=== PATIENT | female | born 1960 | race Hispanic/Latino ===

== ENCOUNTER 2019-06-01 12:17 | Outpatient (CLI) | payer OTHER ==
--- NOTE | 2019-06-01 15:29 | Mammography Report ---
LEFT DIGITAL DIAGNOSTIC MAMMOGRAM WITH CAD 06/01/2019 LEFT LIMITED BREAST ULTRASOUND INDICATION: Recalled to evaluate an upper asymmetry at screening. F/U abnormal mammogram TECHNIQUE: Digital left mammographic imaging was performed. Spot compression views were obtained. Li mited ultrasound was performed. This examination was interpreted with the benefit of Computer-Aided D etection (CAD) analysis. COMPARISON: 04/28/2019 FINDINGS: Breast Density: The breasts are heterogeneously dense, which may obscure small masses. MAMMOGRAPHIC FINDINGS: A partially circumscribed asymmetry persists on a spot compression MLO view. A lateral view is negative. ULTRASOUND FINDINGS: Targeted ultrasound evaluation was performed of the area of interest. Ultrasou nd of the outer left breast was performed from 12:00 to 6:00 and demonstrated an oval cyst at 2:00 6 cm from the nipple. It has a partially calcified wall and correlates with the mammographic density. IMPRESSION: A benign cyst at 2:00 6 cm from the nipple. The sonographic characteristics suggest benig n fat necrosis with a benign oil cyst. Follow up recommendation: Routine yearly BI-RADS Category 2: Benign. A "normal" or negative report should not discourage follow up or biopsy of a clinically significant f inding. A written summary of these findings will be mailed to the patient. The patient will be entered into a mammography reporting system which will generate a reminder letter for the patient's next appointmen t at the appropriate interval. According to the [employer], yearly mammograms are recommended starting at age 40 and continuing as long as a woman is in good health. Breast MRI is recommended for women with an ira roximately 20-25% or greater lifetime risk of breast cancer, including women with a strong family his tory of breast or ovarian cancer and women who have been treated for Hodgkin's disease. Signer Name: Elijah Merrill MD Signed: 06/01/2019 3:24 PM Workstation Name: [id number]
== END 2019-06-01 12:18 | disposition home or self-care (01) ==
LOC: SPVWC 12:17
PROVIDERS: ATTEND Surgery
DX: N60.02 Solitary cyst of left breast (principal); N64.89 Other specified disorders of breast

== ENCOUNTER 2020-05-04 09:02 | Outpatient (CLI) | payer OTHER ==
--- NOTE | 2020-05-04 10:15 | Mammography Report ---
BILATERAL DIGITAL SCREENING MAMMOGRAM WITH CAD HISTORY: Screening mammogram. TECHNIQUE: Routine digital mammographic imaging performed. This examination was interpreted with dexter zee benefit of Computer-aided Detection analysis. COMPARISON: 06/01/2019, 04/28/2019, 04/02/2018, 03/25/2017, 03/20/2016, 01/11/2014. FINDINGS: Breast Density: scattered fibroglandular appearance of the breast tissue. Digital CC and MLO views demonstrate no mammographic evidence of malignancy. Stable silicone implant s are again noted bilaterally. Stable right lateral breast oval lesion. Long-term stability would sup port a benign etiology, such as intramammary lymph node. IMPRESSION: No mammographic evidence of malignancy. If the clinical examination remains stable, recommend bilate ral mammogram in approximately one year. BIRADS 2: Benign Finding(s). FURTHER INFORMATION: According to the [employer], yearly mammograms are recommend ed starting at age 40 and continuing as long as a woman is in good health. Clinical Breast Exams shou ld be part of a periodic health exam-about every 3 years for women in their 20s and 30s and every yea r for women 40 and over. Breast self exam is an option for women starting in their 20s. Any breast ch maxwell noted on a breast self exam should be reported promptly to the patient's healthcare provider. Br east MRI is recommended for women with an approximately 20-25% or greater lifetime risk of breast can cer, including women with a strong family history of breast or ovarian cancer and women who have been treated for Hodgkin's disease. A negative Mammography report should not discourage follow up or biopsy of a clinically significant f inding and/or abnormality. Dense breast tissue may obscure small neoplasms. The patient will be entered into a reminder system with a target due date for the next screening mamm ogram. Signer Name: Kenny Bhatt MD Signed: 05/04/2020 10:10 AM Workstation Name: [id number]
== END 2020-05-04 09:03 | disposition home or self-care (01) ==
LOC: SPVWC 09:02
PROVIDERS: ATTEND Surgery
DX: Z12.31 Encounter for screening mammogram for malignant neoplasm of breast (principal)
CPT/HCPCS: 77067